=== PATIENT | female | born 1970 | race Caucasian/White ===

== ENCOUNTER 2018-05-04 09:47 | Outpatient (CLI) | payer OTHER ==
--- NOTE | 2018-05-05 02:11 | Diagnostic Imaging Report ---
EZ LAM (MAILING JOGGER) - OP [facility] [address] [facility] [address] [place] [address]. [id number] Report Submission Date: May 04, 2018 10:52:31 AM SURGICAL INSTRUMENT MAKER Patient Study Name: SUNITA BREWSTER Date: May 04, 2018 10:21:43 AM SURGICAL INSTRUMENT MAKER Modality Type: CT\SR Gender: F Description: CT ABD PELVIS W/ CON : 66 Institution: [facility] Physician: EZ LAM (LUBNA) - OP Exam: CT abdomen and pelvis with contrast. History: Nausea. Fever. Right upper quadrant pain for 3 days. History of appendectomy. History of polycystic renal disease. Axial images through the abdomen and pelvis after IV infusion of contrast material is submitted along with sagittal and coronal reformatted images. The visualized lower lung mccoy are clear. A small hiatal hernia is identified. No free intraperitoneal air is identified. The gallbladder is distended without stones. There are numerous well- circumscribed hypodensities seen in the liver suggestive of numerous cysts. Several of the cysts measure approximately 2 cm in greatest diameter. Spleen and pancreas are normal attenuation and enhancement without space-occupying lesion. The adrenal glands are normal configuration. The abdominal aorta is of normal caliber. No periaortic lymphadenopathy is identified. There are numerous cysts associated with the kidneys bilaterally. No talon hydronephrosis is identified. The urinary bladder is distended without intrinsic filling defect. The uterus is deviated to the left of midline. No adnexal masses are identified. A small amount of free cul-de-sac fluid in the right side pelvis is noted. The small bowel is of normal caliber. Air and stool seen throughout the large intestine. Diverticula in the sigmoid colon are noted. The appendix is not well visualized. No inflammatory changes to the mesentery or ascites is identified. No bony abnormalities are identified. Impression: Small hiatal hernia. Numerous hepatic cysts. Polycystic kidneys bilaterally. No hydronephrosis is identified. A small amount of free cul-de-sac fluid in the right adnexa is noted. Nonspecific bowel gas pattern. Diverticulosis. Electronically signed on May 04, 2018 10:52:31 AM SURGICAL INSTRUMENT MAKER by: Grant THORNTON
== END 2018-05-04 09:50 ==
LOC: RAD 09:47
PROVIDERS: ATTEND Nurse Practitioner Family
DX: R50.9 Fever, unspecified (principal); R11.2 Nausea with vomiting, unspecified; R10.9 Unspecified abdominal pain; K44.9 Diaphragmatic hernia without obstruction or gangrene; Q61.3 Polycystic kidney, unspecified; K57.30 Diverticulosis of large intestine without perforation or abscess without bleeding
CPT/HCPCS: 74177; Q9967